=== PATIENT | male | born 1945 | race Caucasian/White ===

== ENCOUNTER → 2018-07-04 | Outpatient (CLI) | payer OTHER ==
--- NOTE | ~2018-07-04 | SLE ---
[facility] [place] [address] POLYSOMNOGRAPHY STUDY Name: MARIANO ORDOÑEZ Room #: REG [facility]#: [id number] Admission: 07/04/18 Attend Phys: Mo Coleman MD Discharge: Date of : 47 Report #: [id number] THIS REPORT FOR: //name// CC: Mo Matt MD DATE OF SERVICE: 07/04/2018 SLEEP STUDY ATTENDING PHYSICIAN: Miguel Matt MD. The patient is 72 years old who weighs 257 pounds and 71 inches tall with a BMI of 35.8. The patient's [place] score was 17 out of a maximum 24. The patient had a previous home sleep study performed by [facility] and was found to have severe FELIPE, had an AHI of 74.8 per hour. The patient also had severe nocturnal hypoxia. The patient returned to [facility] for CPAP titration study. During the night study, the patient spent 488 minutes in bed and slept for 460 minutes with an excellent sleep efficiency of 94%. Sleep latency was 2.9 minutes with a REM latency of 14.4 minutes, which was short and probably was related to REM rebound. Overall, sleep architecture showed normal stage I and stage 2 sleep, normal N3 sleep and slightly increased REM sleep, which was 28% of the total sleep time. EKG monitoring revealed an average heart rate of 78 beats per minute with a maximum of 99 beats per minute. Normal sinus rhythm was observed. PLMS were seen at an index of 68 per hour, but only 1.8 per hour caused EEG arousals. The patient was started on CPAP at a pressure of 7 cm water and titrated up to 16 cm water. At the final pressure, the patient slept for 213 minutes. The patient is supine as well as REM sleep. The patient's AHI was reduced to 0 per hour and oxygen saturation remained above 92%. IMPRESSION: 1. Severe sleep apnea diagnosed by home sleep study. 2. Severe periodic limb movements without any significant EEG arousals. This does not need to be treated unless the patient has symptoms of restless legs during the day. RECOMMENDATIONS: [facility] [address] [place] [address] POLYSOMNOGRAPHY STUDY Name: TIAGOMARIANO Kassidy Room #: REG [facility]#: [id number] Admission: 07/04/18 Attend Phys: Mo Coleman MD Discharge: Date of : 47 Report #: [id number] 1. CPAP at 16 cm water completely eliminated the patient's sleep apnea and should be used on a nightly basis. 2. Follow up in 4-6 weeks to assess compliance with CPAP and to document clinical improvement. 3. Weight loss is strongly advised. 4. Avoid [employer] depressants. 5. Cautioned regarding driving until symptoms of sleep apnea resolve with the use of CPAP. <ELECTRONICALLY SIGNED> By: Mo Coleman MD 07/06/182015 21 1644 Mo Coleman MD /mason
== END ==
LOC: SLEEPLAB 14:49
DX: G47.33 Obstructive sleep apnea (adult) (pediatric) (principal); G47.61 Periodic limb movement disorder